=== PATIENT | female | born 1995 | race Caucasian/White ===

== ENCOUNTER 2022-09-09 10:59 | Emergency (ER) | payer BC, SELFPAY ==
[2022-09-09 11:06] VITALS: BP 135/47; PULSE 55; RESP 16; TEMP 37; O2SAT 100
--- NOTE | 2022-09-09 13:37 | ED.GENADUL_ITS ---
Discharge Plan Disposition Patient Disposition: Home Discharge Details Clinical Impression: Back pain Primary Care Provider: Haydee Lema ED Provider: Rosalio Toth Home Meds and New Rx's Prescriptions: New cyclobenzaprine 10 mg tablet 10 mg PO TID PRN (Reason: muscle spasm) Qty: 20 0RF Continued metformin 500 mg tablet 1,500 mg PO DAILY bupropion HCl 300 mg tablet extended release 24 hr 300 mg PO QAM Qty: 90 3RF trazodone 100 mg tablet 100 mg PO QHS PRN (Reason: insomnia) Qty: 90 1RF spironolactone 50 mg tablet 100 mg PO BID Discontinued melatonin 5 mg tablet 10 mg PO HS PRN Patient Comments: pt reports not taking Discharge Instructions Instructions: Back Pain (ED) Additional Instructions: The steroid you received is a long-acting steroid so this may take a while to kick in but hopefully will provide you some further relief. You may also take [id number] acetaminophen just do not exceed 4000 mg in a 24-hour period. Please use caution when taking the muscle relaxer as you may become sleepy drowsy and you should not operate vehicles or heavy machinery firearms or dangerous equipment while use of this medication. If you develop any new or significant worsening of symptoms over return the emergency department for reassessment otherwise follow-up with your primary care provider if not improving in the next 1 to 2 weeks. Referrals: Haydee Lema, [employer] [Primary Care Provider] - 2 weeks (As needed for reassessment) Discharge Data Discharge Date/Time-TO BE ENTERED AT DEPARTURE: 09/09/22 14:00 Medical Decision Making Patient presenting to the emergency department for chief complaint of low back pain. Patient reports no injury or trauma just that with an abnormal movement started having some back pain. Yesterday patient started having some radiculopathy down left leg and worsening spasms. Patient has intermittently used NSAIDs for her pain but states that she was instructed not to use these due to her von Willebrand's disease. Review of systems is otherwise unremarkable, patient has no specific worrisome past medical history of contributing factor. Physical exam is consistent with lumbar strain and some radiculopathy. Based upon physical exam and review of systems I do not feel that patient is consistent with emergent back pain and is at LOW risk for ABDOMINAL AORTIC ANEURYSM, CAUDA EQUINA SYNDROME, EPIDURAL MASS LESION, SPINAL STENOSIS, OR HERNIATED DISK CAUSING SEVERE STENOSIS, thus I consider the discharge disposition reasonable. Prior to discharge patient was given acetaminophen, Flexeril, and Depo-Medrol. We will continue use of acetaminophen and Flexeril on an outpatient basis and have patient follow-up with primary care provider. We have discussed the diagnosis and risks, and we agree with discharging home to follow-up with their primary doctor. We also discussed returning to the Emergency Department immediately if new or worsening symptoms occur. We have discussed the symptoms which are most concerning (e.g., saddle anesthesia, urinary or bowel incontinence or retention, changing or worsening pain) that necessitate immediate return. After discussion of diagnosis and plan of care patient has no further needs, questions, or concerns and states clear understanding to return to the emergency department for any worsening symptoms. This documentation was generated using [employer] system, please disregard any oddities of phrase or misspellings. HPI General Mode of arrival: ambulatory . Date/Time Provider Initiated Documentation: 09/09/22 12:06 . Limitations to Documentation: no limitations . Information obtained by: patient and RN notes reviewed . History of Present Illness 27 year old F presents to the emergency department with the chief complaint of Back pain, described as moderate and severe, Quality is desc ribed as sharp, and is localized to the back. Patient extremity. Patient started experiencing this day(s) (4) and it has been constant. No relieving factors improve symptom(s), Movement worsens symptoms . Patient notes no other symptoms.. Patient did receive the following treatments prior to arrival, NSAID (Low-dose intermittent) Related Data Home Medications Medication Instructions Recorded Confirmed metformin 500 mg tablet 1,500 mg PO DAILY 06/28/22 09/09/22 bupropion HCl 300 mg 24 hr tablet, 300 mg PO QAM #90 tabs 07/31/22 09/09/22 extended release trazodone 100 mg tablet 100 mg PO QHS PRN insomnia #90 tabs 08/20/22 09/09/22 cyclobenzaprine 10 mg tablet 10 mg PO TID PRN muscle spasm #20 09/09/22 tabs spironolactone 50 mg tablet 100 mg PO BID 09/09/22 09/09/22 Previous Rx's Medication Instructions Recorded bupropion HCl 300 mg 24 hr tablet, 300 mg PO QAM #90 tabs 07/31/22 extended release trazodone 100 mg tablet 100 mg PO QHS PRN insomnia #90 tabs 08/20/22 cyclobenzaprine 10 mg tablet 10 mg PO TID PRN muscle spasm #20 09/09/22 tabs Allergies Allergy/AdvReac Type Severity Reaction Status Date / Time effexor AdvReac Intermediate dizziness Uncoded 09/09/22 11:10 and headaches lamictal AdvReac Intermediate Uncoded 09/09/22 11:10 General Stated Complaint: Nk/Back Pain SANG: 3 Review of Systems Constitutional Constitutional: Denies chills and Denies fever(s) Cardiovascular Cardiovascular: Denies chest pain and Denies dyspnea on exertion Respiratory Respiratory: Denies cough and Denies dyspnea on exertion Gastrointestinal Gastrointestinal: Denies abdominal pain, Denies change in bowel habits, Denies diarrhea, Denies nausea and Denies vomiting Genitourinary Genitourinary: Denies urinary incontinence Musculoskeletal Musculoskeletal: Reports as per HPI and Reports back pain Neurologic Neurologic: Denies sensory deficit PFSH All Active Problems (Updated 09/09/22 @ 13:46 by Rosalio Toth NP) Back pain (Acute) Vaping nicotine dependence, tobacco product (Acute) Von Willebrand disease (Acute) Hirsutism (Acute) Irritable bowel syndrome with constipation (Acute) PCOS (polycystic ovarian syndrome) (Acute) Vitamin D deficiency (Acute) Insulin resistance (Acute) Anxiety (Chronic) Surgical History History of hip surgery Left hip when she was 14 S/P tonsillectomy Family History Brother Anxiety Mother Depression Diabetes Maternal Grandmother Cancer Maternal Grandfather Cancer Social History Smoking/Tobacco Use Status: Current every day Tobacco Type: e-cigarettes Tobacco: How many years used: 7 Second Hand Exposure: No Smoking risk assessment performed?: Yes Alcohol Intake: current Alcohol Intake frequency: a few times a month Drug use: Daily Substance use type: marijuana Adopted: No Caregiver/Support person: No Foster care: No Household members: significant other Housing: house Number of Children: 0 number of grandchildren: 0 Communication Needs: None Education Level: high school Do you need help understanding health information?: Never current occupation: Registrar Pets and animals: Yes (2 dogs, 1 cat) Pets and animals: cat(s) and dog(s) Sexually active: Yes Do you think of yourself as: bisexual What is your relationship status?: living with partner How often do you talk on the phone with friends or family?: three or more times per week How often do you get together with friends or relatives?: never Do you belong to any clubs or organized social groups?: no Panel score (0-1 are the most socially isolated patients): 2 What type of physical activity do you participate in: none Leeanna/Buddhist: [employer]aritan Special leeanna needs: No Seatbelt use: always Helmet use: No Drive intox or ride w/intox driver license reviewing officer: No Do you feel safe at home: Yes Do you feel safe in your relationship?: Yes Exam Const General: cooperative and no acute distress Orientation: alert, awake and oriented x3 Neck Neck: normal visual inspection, full ROM and no meningeal signs Resp Effort & Inspection: normal respiratory effort Auscultation: clear to auscultation bilaterally Cardio Rate: regular rate Rhythm: regular rhythm Heart Sounds: S1 normal and S2 normal Back/Spine/Pelvis Thoracic/Lumbar Spine: pain with thoraco-lumbar ROM, thoraco-lumbar ROM limited, No thoracic spinal tenderness, lumbar spinal tenderness and straight leg raise positive Pelvis: no pain with anterior-posterior compression, no pain with lateral compression and buttock tenderness bilaterally Neuro General: patient alert, patient awake and patient oriented x3 DTR's: Rt Patellar: 1+, Lt Patellar: 1+, Rt Ankle: 1+ and Lt Ankle: 1+ Course Vital Signs Vital signs: Vital Signs Temperature 37 C 09/09/22 11:06 Pulse 55 L 09/09/22 11:06 Respiratory Rate 16 09/09/22 11:06 Blood Pressure 135/47 L 09/09/22 11:06 Pulse Oximetry 100 09/09/22 11:06 Temperature 37 C 09/09/22 11:06 Temperature Source Skin 09/09/22 11:06 Pulse 55 L 09/09/22 11:06 Respiratory Rate 16 09/09/22 11:06 Blood Pressure 135/47 L 09/09/22 11:06 Blood Pressure Position Sitting 09/09/22 11:06 Pulse Oximetry 100 09/09/22 11:06 Pain Level 6 09/09/22 11:06 Comment low back 09/09/22 11:06
[2022-09-09] MEDS: Cyclobenzaprine 10 MG TAB PO (13:47)
[2022-09-09] MEDS: Acetaminophen 500 MG TAB 1000 MG PO (13:47)
[2022-09-09] MEDS: methylPREDNISolone ACETATE 80 MG/ML VIAL IM (13:50)
== END 2022-09-09 14:00 | disposition home or self-care (01) ==
PROVIDERS: Emergency Provider Nurse Practitioner Family; PCP Nurse Practitioner
DX: M54.12 Radiculopathy, cervical region (principal); D68.00 Von Willebrand disease, unspecified; F17.290 Nicotine dependence, other tobacco product, uncomplicated
CPT/HCPCS: 99283; J1040

== ENCOUNTER 2023-03-30 10:33 | Emergency (ER) | payer BC, OTHER, SELFPAY ==
[2023-03-30 10:36] VITALS: BP 134/85; PULSE 104; RESP 18; TEMP 36.3; O2SAT 97
--- NOTE | 2023-03-30 10:47 | W.ED.GENAD ---
HPI General Mode of arrival: ambulatory. Date/Time Provider Initiated Documentation: 03/30/23 10:34. Limitations to Documentation: no limitations. Information obtained by: patient. History of Present Illness 27 year old F presents to the emergency department with the chief complaint of Lower back pain, described as severe, Quality is described as sharp, and is localized to the back. Patient reports no radiation. Patient started experiencing this month(s) (6) and it has been intermittent. No relieving factors improve symptom(s), No exacerbating factors reported . Patient notes no other symptoms.. Patient did receive the following treatments prior to arrival, other (Tylenol and Flexeril) Related Data Home Medications Medication Instructions Recorded Confirmed metformin 500 mg tablet 1,500 mg PO DAILY 06/28/22 01/21/23 bupropion HCl 300 mg 24 hr tablet, 300 mg PO QAM #90 tabs 07/31/22 01/21/23 extended release spironolactone 50 mg tablet 100 mg PO BID 09/09/22 01/21/23 cyclobenzaprine 10 mg tablet 10 mg PO TID PRN muscle spasm #60 01/21/23 01/21/23 tabs lorazepam 0.5 mg tablet 0.5 mg PO DAILY PRN anxiety #15 01/21/23 01/21/23 tabs sertraline 50 mg tablet 50 mg PO DAILY #30 tabs 03/13/23 03/13/23 trazodone 100 mg tablet 100 mg PO QHS PRN insomnia #90 tabs 03/25/23 Previous Rx's Medication Instructions Recorded bupropion HCl 300 mg 24 hr tablet, 300 mg PO QAM #90 tabs 07/31/22 extended release cyclobenzaprine 10 mg tablet 10 mg PO TID PRN muscle spasm #60 01/21/23 tabs lorazepam 0.5 mg tablet 0.5 mg PO DAILY PRN anxiety #15 01/21/23 tabs sertraline 50 mg tablet 50 mg PO DAILY #30 tabs 03/13/23 trazodone 100 mg tablet 100 mg PO QHS PRN insomnia #90 tabs 03/25/23 Allergies Allergy/AdvReac Type Severity Reaction Status Date / Time lamotrigine [From Lamictal] AdvReac nausea and Verified 03/13/23 15:20 dizzy effexor AdvReac Intermediate dizziness Uncoded 03/13/23 15:20 and headaches General Stated Complaint: Nk/Back Pain SANG: 3 Review of Systems All systems reviewed & are unremarkable except as noted in HPI and below Constitutional Constitutional: Denies chills, Denies fever(s) and Denies weakness Cardiovascular Cardiovascular: Denies chest pain and Denies dyspnea Respiratory Respiratory: Denies cough and Denies dyspnea Gastrointestinal Gastrointestinal: Denies abdominal pain, Denies nausea and Denies vomiting Musculoskeletal Musculoskeletal: Denies joint swelling Neurologic Neurologic: Denies weakness Psychiatric Psychiatric: Denies depression Exam Const General: no acute distress Orientation: alert HENMT Head: normal to inspection Ears: external ears normal General nose exam: external nose normal Mouth: moist mucous membranes Eyes General: appearance normal, both eyes and all related structures Neck Neck: normal visual inspection Resp Effort & Inspection: normal respiratory effort and able to speak in complete sentences Cardio Rate: regular rate GI Palpation: soft and nontender Back/Spine/Pelvis Back: no CVA tenderness Thoracic/Lumbar Spine: thoracic and lumbar spine normal to inspection, No thoracic spinal tenderness and lumbar spinal tenderness Skin General skin exam: no rashes or lesions noted Neuro General: patient alert and patient oriented x3 Extrem General: normal to inspection Psych Mental Status: mental status grossly normal Course Vital Signs Vital signs: Vital Signs Temperature 36.3 C L 03/30/23 10:36 Pulse 104 H 03/30/23 10:36 Respiratory Rate 18 03/30/23 10:36 Blood Pressure 134/85 03/30/23 10:36 Pulse Oximetry 97 03/30/23 10:36 Temperature 36.3 C L 03/30/23 10:36 Temperature Source Temporal Artery Scan 03/30/23 10:36 Pulse 104 H 03/30/23 10:36 Respiratory Rate 18 03/30/23 10:36 Blood Pressure 134/85 03/30/23 10:36 Blood Pressure Position Sitting 03/30/23 10:36 Pulse Oximetry 97 03/30/23 10:36 Oxygen Delivery Method Room Air 03/30/23 10:36 Oxygen Flow Rate 0 03/30/23 10:36 Pain Level 10 03/30/23 10:36 Comment 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 Denies any known trauma or falls. After seeing her primary care and physical therapy states the last few days has increased pain despite taking Flexeril. She denies any fevers, abdominal pain, vomiting, urinary symptoms. She is ambulatory on arrival, conscious and alert and oriented x 4 and appears in no distress. She denies any IV drug use. No unexplained weight loss. She is localizes the pain to the lumbar region on the left side. She is tender just lateral to L4 and L5 on the left side and also over L4 and L5, no palpable or visible deformities. No saddle anesthesia, intact distal sensation and pulses. Suspect musculoskeletal back pain, versus muscle spasm, possibly a disc herniation. She has no findings on exam or history to suggest entities such as spinal epidural abscess or cauda equina. She would like to have x-rays that she never had these before, feel this is reasonable just to exclude any compression fracture. Patient feels better after Toradol and lidocaine patch, x-ray on my read does not show anything acute, patient does not want a wait for read which I feel is reasonable. Reassuring exam still still no saddle anesthesia. She is stable for discharge, advised to follow-up with primary care provider within 1 to 2 weeks, return precautions given Differential Diagnosis Differential Diagnosis: Muscle spasm, disc herniation, back strain Medical Records Medical records reviewed: Yes I reviewed the patient's medical records. Imaging Data Radiologic Study: Attestation: I personally reviewed and interpreted this imaging study as follows: Imaging: X-Ray My impression: No acute findings Quality:SDOH Health Related Social Needs: No Data to Display PFSH All Active Problems (Updated 03/30/23 @ 11:42 by Leobardo Pope MD) Lumbar back pain (Acute) Vaping nicotine dependence, tobacco product (Acute) Von Willebrand disease (Acute) Hirsutism (Acute) Irritable bowel syndrome with constipation (Acute) PCOS (polycystic ovarian syndrome) (Acute) Vitamin D deficiency (Acute) Insulin resistance (Acute) Anxiety (Chronic) Surgical History History of hip surgery Left hip when she was 14 S/P tonsillectomy Family History Brother Anxiety Mother Depression Diabetes Maternal Grandmother Cancer Maternal Grandfather Cancer Social History (Updated 10/31/22 @ 11:26 by Kelsie Roca LPN) Smoking/Tobacco Use Status: Current every day Tobacco Type: e-cigarettes Tobacco: How many years used: 7 Second Hand Exposure: No Smoking risk assessment performed?: Yes Alcohol Intake: current Alcohol Intake frequency: a few times a month Drug use: Daily Substance use type: marijuana Adopted: No Caregiver/Support person: No Foster care: No Household members: significant other Housing: house Number of Children: 0 number of grandchildren: 0 Communication Needs: None Education Level: high school Do you need help understanding health information?: Never 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 Pets and animals: Yes (2 dogs, 1 cat) Pets and animals: cat(s) and dog(s) Sexually active: Yes Do you think of yourself as: bisexual What is your relationship status?: living with partner How often do you talk on the phone with friends or family?: three or more times per week How often do you get together with friends or relatives?: never Do you belong to any clubs or organized social groups?: no Panel score (0-1 are the most socially isolated patients): 2 What type of physical activity do you participate in: none Leeanna/Muslim: Alevism Special leeanna needs: No Seatbelt use: always Helmet use: No Drive intox or ride w/intox 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 Do you feel safe at home: Yes Do you feel safe in your relationship?: Yes Discharge Plan Disposition Patient Disposition: Home Condition: Stable Discharge Details Clinical Impression: Lumbar back pain Primary Care Provider: Haydee Lema ED Provider: Leobardo Pope [place] Meds and New Rx's Prescriptions: Continued lorazepam 0.5 mg tablet 0.5 mg PO DAILY PRN (Reason: anxiety) Qty: 15 0RF cyclobenzaprine 10 mg tablet 10 mg PO TID PRN (Reason: muscle spasm) Qty: 60 0RF sertraline 50 mg tablet 50 mg PO DAILY Qty: 30 12RF metformin 500 mg tablet 1,500 mg PO DAILY bupropion HCl 300 mg tablet extended release 24 hr 300 mg PO QAM Qty: 90 3RF trazodone 100 mg tablet 100 mg PO QHS PRN (Reason: insomnia) Qty: 90 1RF spironolactone 50 mg tablet 100 mg PO BID Discharge Instructions Instructions: Lower Back Exercises (ED) Additional Instructions: Your x-ray did not show any concerning findings Follow-up with physical therapy and your primary care provider If you feel more ill, have new symptoms such as fever or severe abdominal pain return to the emergency department for evaluation
[2023-03-30] MEDS: Lidocaine 5% Patch 1 PATCH TP (10:57)
[2023-03-30] MEDS: Ketorolac 15 MG/ML VIAL IM (10:57)
--- NOTE | 2023-03-30 11:31 | DI.RAD_ITS ---
Exam(s) XR LUMBAR SPINE COMPLETE EXAM: XR LUMBAR SPINE COMPLETE CLINICAL HISTORY: lower midline back pain. TECHNIQUE: 2D digital imaging was performed of the lumbar spine. Five images were obtained. AP, la teral, right oblique, left oblique and L5-S1 spot views were obtained. COMPARISON: No exams were available for comparison FINDINGS: BONES: No fracture or destructive lesion. Vertebral bodies are unremarkable. No facet hypertrophy diann ntified. DISKS: Intervertebral disc spaces are maintained. ALIGNMENT: Lumbar spinal alignment is within normal limits. No spondylolysis or spondylolisthesis. SOFT TISSUE: Normal. IMPRESSION: Unremarkable radiographs of the lumbar spine. DATA REPOSITORY: RADIATION DOSE DELIVERED:
[2023-03-30 11:37] LABS: Bilirubin Negative (Negative); Blood Trace-intact (Negative); Clarity Clear (Clear); Glucose Negative (Negative); Ketones Negative (Negative); Leukocyte Esterase Negative (Negative); Nitrite Negative (Negative); Specific Gravity 1.025 (1.005-1.025); Urobilinogen 0.2 mg/dL (Up to 0.2)
--- NOTE | 2023-03-30 11:42 | DI.VRAD_ITS ---
PROCEDURE INFORMATION: Exam: XR Lumbosacral Spine Exam date and time: 03/30/2023 11:20 AM Age: 27 years old Clinical indication: Other: Worsening back pain over 3 days TECHNIQUE: Imaging protocol: Radiologic exam of the lumbosacral spine. Views: 4 or 5 views. COMPARISON: No relevant prior studies available. FINDINGS: Bones/joints: Normal. No acute fracture. Normal alignment. Left femoral head orthopedic screw. Soft tissues: Unremarkable. IMPRESSION: No acute findings. Dictated and Authenticated by: Tomás Corona MD. Ordering:KANWAL Booth MD
[2023-03-30 11:44] LABS: Bacteria Rare HPF (Negative); C & S Indicated? No; Casts Negative LPF (Negative); Crystals Negative HPF (Negative); Epithelial Cells Few HPF (Negative); Mucus Trace (Negative); WBC 0-2 HPF (0-5)
== END 2023-03-30 11:49 | disposition home or self-care (01) ==
PROVIDERS: Emergency Provider Emergency Medicine; PCP Nurse Practitioner
DX: M54.50 Low back pain, unspecified (principal); D68.00 Von Willebrand disease, unspecified; F17.290 Nicotine dependence, other tobacco product, uncomplicated; Z79.84 Long term (current) use of oral hypoglycemic drugs
CPT/HCPCS: 96372; 99283; 72110; 81003; 81015; J1885

== ENCOUNTER → 2023-04-26 01:24 | Outpatient (CLI) | payer BC, OTHER, SELFPAY ==
--- NOTE | 2023-04-26 07:45 | DI.MRI_ITS ---
Exam(s) MR LUMBAR SPINE WO EXAM: MR LUMBAR SPINE WO CLINICAL HISTORY: low back pain, buttock pain,leg [id number]. TECHNIQUE: Multiplanar multisequence MRI of the Lumbar spine was performed. COMPARISON: CR,XR XR LUMBAR SPINE COMPLETE from 03/30/2023 FINDINGS: Bones: The last intervertebral disc space is designated the L5/S1 level for the numbering purpose of this ex amination. The vertebral body heights are well maintained. Alignment: Unremarkable. The marrow signal characteristics are unremarkable. Cord: The conus tip ends at the T12 level. It is of normal size and signal intensity. T12-L1: No focal disc herniation is present. No central spinal canal stenosis.No neural foraminal st enosis. L1-2: Mild loss of disc height. Right paracentral disc bulging. No central spinal canal stenosis.Mi ld right foraminal stenosis. L2-3: No focal disc herniation is present. No central spinal canal stenosis.No neural foraminal yung nosis. L3-4: Partial disc desiccation. Disc height is normal. Broad-based disc bulging. No focal disc her niation is present. Mild central spinal canal stenosis.No neural foraminal stenosis. L4-5: No focal disc herniation is present. Mild facet degenerative changes. No central spinal canal stenosis.No neural foraminal stenosis. L5-S1: Normal disc height. Small to moderate size central disc protrusion. Mild facet degenerative changes. No central spinal canal stenosis. Mild right neural foraminal narrowing. Mild facet dege nerative changes. The visualized SI joints and sacrum are unremarkable. Soft tissues: The paraspinal soft tissues are unremarkable. Multiple small follicles are noted on bot h ovaries. The findings could indicate polycystic ovarian syndrome. Clinical correlation recommende d. IMPRESSION: Small right-sided disc protrusion at L 1 2. Disc bulging at L3-4 causes mild central canal stenosis. Central disc protrusion at L5-S1 causes mild right neural foraminal narrowing. DATA REPOSITORY:
== END ==
PROVIDERS: PCP Nurse Practitioner; Visit Provider Nurse Practitioner
DX: M51.87 Other intervertebral disc disorders, lumbosacral region (principal)
CPT/HCPCS: 72148